=== PATIENT | female | born 1995 | race Caucasian/White ===

== ENCOUNTER 2021-10-14 04:37 | Inpatient (IN) ==
[2021-10-14] MEDS ORDERED: TRANEXAMIC ACID 1,000 MG in SODIUM CHLORIDE 0.9% 100 ML IV PRN (04:52)
[2021-10-14] MEDS ORDERED: OXYTOCIN/LR 20 UNIT/1,000 ML BAG IV ONE ×3 (04:52→08:54)
[2021-10-14] MEDS ORDERED: miSOPROStoL 200 MCG TABLET RECTAL PRN (04:52)
[2021-10-14] MEDS ORDERED: CARBOPROST TROMETHAMINE 250 MCG/ML AMP IM PRN (04:52)
[2021-10-14] MEDS ORDERED: METHYLERGONOVINE 0.2 MG/1 ML AMP IM PRN (04:52)
[2021-10-14] MEDS ORDERED: CITRIC ACID/SODIUM CITRATE 30 ML UDCUP PO ONE (04:52)
[2021-10-14] MEDS ORDERED: ceFAZolin 3,000 MG in SYRINGE 1 EACH IV ONE (04:52)
[2021-10-14] MEDS ORDERED: FAMOTIDINE 20 MG/2 ML VIAL IV ONE (04:52)
[2021-10-14 05:15] LABS: Basophils % 0.3 % (0.0-0.8); Eosinophils # 0.1 10*3/uL (0.0-0.87); Eosinophils % 0.7 % (0.00-10.9); Hemoglobin 10.8 GM/DL (12.0-16.0); Immature Granulocytes % 0.6 %; Immature Granulocytes Absolute 0.06 #; Lymphocytes # 2.7 10*3/uL (1.4-4.0); Lymphocytes % 24.9 % (21.3-54.2); Mean Corpuscular HGB Conc 30.9 GM/DL (32-36); Mean Corpuscular Volume 90.4 FL (87-102); Mean Platelet Volume 9.8 FL (9.6-12.0); Monocytes # 0.5 10*3/uL (0.11-0.8); Monocytes % 4.5 % (1.7-12.7); Platelet Count 279 T/CUMM (130-400); Red Blood Count 3.87 MC/CUMM (3.8-5.5); Red Cell Distribution Width 14.1 % (9.3-17.3); White Blood Count 10.7 T/CUMM (4-12)
[2021-10-14 05:38] LABS: Alanine Aminotransferase 16 U/L (13-56); Albumin 2.5 G/DL (3.4-5.0); Alkaline Phosphatase 173 U/L (45-117); Aspartate Amino Transferase 12 U/L (0-37); Bilirubin,Total < 0.39 MG/DL (0.20-1.00); Blood Urea Nitrogen 10 MG/DL (7-18); Calcium 9.1 MG/DL (8.5-10.1); Carbon Dioxide 23 MMOL/L (21-32); Chloride 108 MMOL/L (98-107); Glucose 74 MG/DL (74-106); Osmolality,Calculated 274.5 MOS/KG (273-304); Sodium 139 MMOL/L (136-145)
[2021-10-14] MEDS ORDERED: BUPIVACAINE SPINAL 0.75% 2 ML AMP SPINAL ONE (06:33)
[2021-10-14] MEDS ORDERED: ONDANSETRON 4 MG/2 ML VIAL ONE (06:33)
[2021-10-14] MEDS ORDERED: buprenorphine HCL 0.3 MG/ML VIAL ONE (06:34)
[2021-10-14] MEDS: LACTATED RINGERS 1,000 ML IV SCH (06:39)
[2021-10-14] MEDS ORDERED: TRANEXAMIC ACID 1,000 MG/10 ML VIAL ONE (07:11)
[2021-10-14] MEDS ORDERED: METHYLERGONOVINE 0.2 MG/1 ML AMP ONE (07:11)
[2021-10-14] MEDS ORDERED: miSOPROStoL 200 MCG TABLET ONE (07:11)
[2021-10-14] MEDS ORDERED: SODIUM CHLORIDE 0.9% 0 ML IV ONE (07:11)
[2021-10-14] MEDS ORDERED: CARBOPROST TROMETHAMINE 250 MCG/ML AMP IM ONE (07:12)
[2021-10-14] MEDS ORDERED: GLYCOPYRROLATE 0.4 MG/2 ML VIAL ONE (08:03)
[2021-10-14] MEDS ORDERED: PHENYLEPHRINE 1 MG/10 ML SYRINGE IV ONE (08:03)
[2021-10-14] MEDS ORDERED: LACTATED RINGERS 1,000 ML IV ONE (08:03)
[2021-10-14] MEDS ORDERED: KETOROLAC 30 MG/1 ML VIAL ONE (08:09)
[2021-10-14 08:29] LABS: Cord Arterial Blood HCO3 22.9 MMOL/L
[2021-10-14 08:33] LABS: Cord Venous Blood HCO3 23.1 MMOL/L; Cord Venous Blood PCO2 42.6 MMHG; Cord Venous Blood PO2 35.6
[2021-10-14 08:40] LABS: Mucus,Urine Occasional /LPF (Occasional); RBC,Urine 1 /HPF (0-4); Urine Appearance Clear (Clear); Urine Color Yellow (Yellow); Urine pH 6.5 (4.5-8.0)
[2021-10-14 08:41] LABS: Bilirubin,Urine Negative (Negative); Blood, Urine Trace mg/dL (Negative); Glucose,Urine (UA) Negative (Negative); Ketones,Urine Negative (Negative); Nitrite,Urine Negative (Negative); Protein,Urine Negative (Negative); Urine Specific Gravity 1.015 (1.001-1.035); Urine Urobilinogen 0.2 eU/dL (<2.0)
[2021-10-14] MEDS ORDERED: RHO(D) IMMUNE GLOBULIN 300 MCG SYRINGE IM ONE (08:54)
[2021-10-14] MEDS ORDERED: ACETAMINOPHEN 325 MG TABLET PO PRN (08:54)
[2021-10-14] MEDS ORDERED: ONDANSETRON 4 MG/2 ML VIAL IV PRN (08:54)
[2021-10-14] MEDS ORDERED: diphenhydrAMINE 50 MG/1 ML VIAL IV ONE (09:09)
[2021-10-14] MEDS ORDERED: ACETAMINOPHEN 500 MG TABLET PO PRN (11:00)
[2021-10-14] MEDS: ACETAMINOPHEN 500 MG TABLET PO SCH ×2 (11:14→16:33)
[2021-10-14] MEDS: KETOROLAC 30 MG/1 ML VIAL IV SCH ×2 (14:25→21:10)
[2021-10-14] MEDS: ceFAZolin 2,000 MG/50 ML DUPLEX IV SCH (14:52)
[2021-10-14] MEDS: DOCUSATE SODIUM 100 MG CAPSULE PO SCH ×2 (15:14→21:10)
[2021-10-14 15:56] LABS: Basophils % 0.2 % (0.0-0.8); Eosinophils # 0.1 10*3/uL (0.0-0.87); Eosinophils % 0.4 % (0.00-10.9); Hematocrit 28.9 VOL% (35.7-47.0); Hemoglobin 9.2 GM/DL (12.0-16.0); Immature Granulocytes % 0.5 %; Immature Granulocytes Absolute 0.07 #; Lymphocytes # 3.1 10*3/uL (1.4-4.0); Lymphocytes % 21.9 % (21.3-54.2); Mean Corpuscular HGB Conc 31.8 GM/DL (32-36); Mean Corpuscular Volume 88.7 FL (87-102); Monocytes # 0.5 10*3/uL (0.11-0.8); Monocytes % 3.3 % (1.7-12.7); Neutrophils % 73.7 % (38.7-73.9); Platelet Count 235 T/CUMM (130-400); Red Blood Count 3.26 MC/CUMM (3.8-5.5); Red Cell Distribution Width 14.2 % (9.3-17.3); White Blood Count 14.1 T/CUMM (4-12)
[2021-10-14] MEDS: MULTIVITAMIN (PRENATAL) TABLET PO SCH (16:32)
[2021-10-14] MEDS ORDERED: ceFAZolin 2,000 MG/50 ML DUPLEX IV SCH (17:30)
[2021-10-15] MEDS: ACETAMINOPHEN 500 MG TABLET PO SCH ×2 (00:28→22:14)
[2021-10-15] MEDS: ceFAZolin 2,000 MG/50 ML DUPLEX IV SCH (00:29)
[2021-10-15] MEDS: KETOROLAC 30 MG/1 ML VIAL IV SCH (02:40)
[2021-10-15 04:33] LABS: Basophils % 0.2 % (0.0-0.8); Eosinophils # 0.2 10*3/uL (0.0-0.87); Eosinophils % 1.8 % (0.00-10.9); Hematocrit 28.9 VOL% (35.7-47.0); Hemoglobin 9.1 GM/DL (12.0-16.0); Immature Granulocytes % 0.5 %; Immature Granulocytes Absolute 0.06 #; Lymphocytes # 3.1 10*3/uL (1.4-4.0); Lymphocytes % 24.6 % (21.3-54.2); Mean Corpuscular HGB Conc 31.5 GM/DL (32-36); Mean Corpuscular Volume 89.2 FL (87-102); Mean Platelet Volume 9.9 FL (9.6-12.0); Monocytes # 0.7 10*3/uL (0.11-0.8); Monocytes % 5.7 % (1.7-12.7); Neutrophils % 67.2 % (38.7-73.9); Platelet Count 254 T/CUMM (130-400); Red Blood Count 3.24 MC/CUMM (3.8-5.5); Red Cell Distribution Width 14.1 % (9.3-17.3); White Blood Count 12.7 T/CUMM (4-12)
[2021-10-15] MEDS: MULTIVITAMIN (PRENATAL) TABLET PO SCH (08:12)
[2021-10-15] MEDS: DOCUSATE SODIUM 100 MG CAPSULE PO SCH ×2 (08:12→20:24)
[2021-10-15] MEDS: oxyCODONE/ACETAMINOPHEN 5-325 MG TABLET PO PRN ×2 (08:19→16:32)
[2021-10-15] MEDS ORDERED: BUTALBITAL/ACETAMIN/CAFFEINE 50-325-40 MG TABLET PO PRN (09:23)
[2021-10-15] MEDS ORDERED: SUMAtriptan 6 MG/0.5 ML VIAL SUBCUT PRN (09:23)
[2021-10-15] MEDS: IBUPROFEN 800 MG TABLET PO PRN ×2 (12:00→20:24)
[2021-10-15] MEDS: MAGNESIUM HYDROXIDE SUSP 30 ML UDCUP PO PRN (20:23)
[2021-10-15] MEDS: SIMETHICONE CHEW 80 MG TABLET PO PRN (20:23)
[2021-10-15] MEDS: LACTATED RINGERS 1,000 ML IV SCH ×4 (22:11→22:14)
[2021-10-16] MEDS: MAGNESIUM HYDROXIDE SUSP 30 ML UDCUP PO PRN (08:48)
[2021-10-16] MEDS: DOCUSATE SODIUM 100 MG CAPSULE PO SCH (08:48)
[2021-10-16] MEDS: SIMETHICONE CHEW 80 MG TABLET PO PRN (08:48)
[2021-10-16] MEDS: MULTIVITAMIN (PRENATAL) TABLET PO SCH (08:48)
[2021-10-16 11:08] VITALS: BP 117/60
== END 2021-10-16 12:25 | disposition home or self-care (01) | DRG 788 ==
LOC: N.LDOUT 04:37 → N.LD 04:37 → N.OB 12:00
PROVIDERS: ADMIT Obstetrics & Gynecology; ATTEND Obstetrics & Gynecology
PROC: LDCSECT (ICD-10-PCS; 2021-10-14 08:10)